=== PATIENT | female | born 1995 | race Caucasian/White ===

== ENCOUNTER 2016-07-21 01:52 | Emergency (ER) | payer BC ==
--- NOTE | ~2016-07-21 | CT4 ---
[facility] A Service of [facility] RADIOLOGY TEXT RESULTS PATIENT: CARRIE LEAL LOCATION: [facility] : [birth year] UNIT #: [id number] AGE: [address]: THIERNO BUCKLEY APRN SEX: F ORDER DR: [id number] [address] [id number] [facility]. [place], [place] [address] [id number] E MR#: [id number] #: [id number] NAME: CARRIE LEAL : 1995 SEX: F STUDY DATE/TIME: 07/21/2016 3:54 UNIT: DYAN ROOM: STUDY DESCRIPTION: CT Abd and Pelv Wo Cont Attending Physician: Thierno Buckley Aprn Ordering Physician: Thierno Buckley Aprn Primary Care Physician: [facility] MEDICAL IMAGING REPORT This report is preliminary unless electronic signature is present EXAM CT abdomen and pelvis, noncontrast, kidney stone protocol, 07/21/2016 HISTORY 21-year-old female in the ED complaining of 2-week history of right flank pain. TECHNIQUE CT examination of the abdomen and pelvis without oral or IV contrast using kidney stone protocol. This CT exam was performed with one or more of the following radiation dose reduction techniques: automatic exposure control, adjustment of mA and/or kV according to patient size, and iterative reconstruction. FINDINGS ABDOMEN: Kidneys, ureters and urinary bladder are normal in noncontrast appearance. No visible nephrolithiasis or evidence of urinary obstruction. Liver, pancreas and spleen are normal in size and appearance without contrast. Nondistended gallbladder. No bile duct dilatation. Small bowel and colon are normal in caliber and appearance, as imaged. The appendix is not directly visualized on this exam, but there is no indirect CT evidence of acute appendicitis. PELVIC FINDINGS: Uterus, ovaries, bladder and rectum are within normal limits. No inguinal hernia. Limited lung base images show no active disease in the lower chest. IMPRESSION Negative noncontrast CT examination of the abdomen and pelvis. No visible [facility] A Service of [facility] RADIOLOGY TEXT RESULTS PATIENT: CARRIE LEAL [id number] : [birth year] UNIT #: [id number] AGE: [address]: THIERNO BUCKLEY APRN SEX: F ORDER DR: nephrolithiasis or evidence of urinary obstruction. Dictated by... Jesus Wan M.D. THIS IS AN ELECTRONICALLY VERIFIED REPORT Jesus Wan M.D. at 07/21/2016 5:59 AM CLIVE/cuauhtemoc TD: 07/21/2016 05:13 JOB #: [id number] MEDICAL IMAGING REPORT Page 1 of 1 COPY
[~2016-07-21 01:52] MED LIST: PHENERGAN SUPP25 MG PR
[2016-07-21 01:57] LABS: URINE SOURCE CLEAN CATCH
[2016-07-21 02:02] LABS: URINE BILIRUBIN NEG (NEG); URINE BLOOD 2+ (NEG); URINE COLOR YELLOW; URINE GLUCOSE NEG (NEG); URINE KETONE TRACE (NEG); URINE LEUKOCYTE ESTERASE TRACE (NEG); URINE NITRATE NEG (NEG); URINE PH 6.5 (5-8); URINE PROTEIN NEG (NEG); URINE SPECIFIC GRAVITY 1.029 (1.003-1.035); URINE UROBILINOGEN 0.2 MG/DL (NEG)
[2016-07-21 02:04] LABS: URINE BACTERIA AUWI NEG (NEGATIVE); URINE SQUAMOUS EPITHELIAL CELL MOD /[HPF]
[2016-07-21 02:08] LABS: CULTURE INDICATED? NO; URINE APPEARANCE HAZY
[2016-07-21 02:36] LABS: BASOPHIL# 0.1 X10e3 (0-0.3); BASOPHIL% 0.8 % (0-2.5); EOSINOPHIL# 0.1 X10e3 (0-0.7); EOSINOPHIL% 1.4 % (0.0-7.0); HEMATOCRIT 40.8 % (35.0-45.0); HEMOGLOBIN 13.4 gm/dL (12.0-16.0); LYMPHOCYTE# 2.7 X10e3 (1.0-3.5); LYMPHOCYTE% 27.7 % (17.0-45.0); MEAN CELL VOLUME 87.2 FL (83-96); MEAN CORPUSCULAR HEMOGLOBIN 28.6 PG (28-34); MEAN CORPUSCULAR HGB CONC 32.8 g/dL (30-36); MEAN PLATELET VOLUME 10.1 FL (6.5-11.5); MONOCYTE# 0.8 X10e3 (0-1.0); MONOCYTE% 8.3 % (3.0-12.0); NEUTROPHIL# 6.1 X10e3 (1.5-7.1); NEUTROPHIL% 61.8 % (40-75); PLATELET COUNT 213 X10e3 (140-420); RED BLOOD COUNT 4.68 X10e (3.90-5.30); RED CELL DISTRIBUTION WIDTH 13.5 % (11.0-15.5); WHITE BLOOD COUNT 9.8 X10e3 (4.0-10.5)
[2016-07-21 02:37] LABS: DIFF IND NO
[2016-07-21 02:59] LABS: BUN/CREATININE RATIO 14.54; CALCIUM SERUM 9.5 mg/dL (8.4-10.2); CREATININE SERUM 1.1 mg/dL (0.6-1.4); GLOM FILT RATE Estimated 71.7 mL/min (>60); POTASSIUM 3.3 mmol/L (3.5-5.1)
== END 2016-07-21 05:55 | disposition home or self-care (01) ==
LOC: CED 01:52
PROVIDERS: Emergency Medicine; Nurse Practitioner Family
DX: R10.9 Unspecified abdominal pain (principal); R11.2 Nausea with vomiting, unspecified; Z79.899 Other long term (current) drug therapy
CPT/HCPCS: 36415; 74176; 80048; 81003; 84703; 85025; 99284